=== PATIENT | female | born 1950 | race Caucasian/White ===

== ENCOUNTER 2017-02-14 05:50 | Outpatient (CLI) | payer MEDICARE, OTHER ==
[~2017-02-14] VITALS: Ht 167.6 cm; Wt 87.8 kg
--- NOTE | ~2017-02-14 | CATH ---
Cardiac Diagnostic Report Demographics Patient Name QI Manzanares Gender Female Date of 1950 Age 66 year(s) Patient Number [id number] Date of Study 02/14/2017 Visit Number [id number] Room Number G6399 [place] ID [id number] Ht 167.64 cm Wt 87.8 kg Referring Jorge Drake Primary Physician Physician Abhijit MILLARD Performing Rubin Lima MD Secondary Physician Physician Diagnostic Rubin Lima MD Assisting Physician Physician Interventional Physician Price Checker Physician Findings and Conclusions Diagnostic Findings and Conclusion Non-obstructive CAD. Elevated LVEDP (17) consistent with diastolic dysfunction. Diagnostic Recommendations Medical therapy. Routine post Perclose care. Procedure Description The patient was brought to the diagnostic cardiac catheterization-EP laboratory in the fasting, non-sedated state. Informed consent was obtained in the written and verbal form after the risks and benefits were explained. The patient had no further questions and agreed to proceed. The planned puncture-incision site(s) were shaved and prepped with ChloraPrep and draped in the usual sterile manner. Pain control medications were delivered by a registered nurse under physician guidance. Surface ECG rhythm, blood pressure measurement, and pulse oximetry were monitored throughout the procedure. Arterial access. The access site was infiltrated with lidocaine. The vessel was entered with the Seldinger technique. A sheath was advanced into the vessel and used for catheter placement. Venous access. The access site was infiltrated with 2% lidocaine. The vessel was entered with the Seldinger technique. A sheath was advanced into the vessel and used for catheter placement. Selective left coronary angiography. A catheter was advanced into the left coronary vessel ostium under Fluoroscopic guidance. Contrast was injected by hand. Images were obtained in multiple projections. Selective right coronary angiography. A catheter was advanced into the right coronary vessel ostium under fluoroscopic guidance. Contrast was injected by hand. Images were obtained in multiple projections. Left heart catheterization. A catheter was advanced across the aortic valve to the left ventricle under fluoroscopic guidance. Resting hemodynamics were obtained. Right heart catheterization. A [place] catheter was successfully advanced to the right atrium, right ventricle, pulmonary artery, and pulmonary artery wedge position under fluoroscopic guidance. Resting hemodynamics were obtained. Measurements included pressures, arterial and venous oxygen saturation samples, and cardiac output. The [place] was removed without difficulty. Arterial and Venous hemostasis was achieved. The patient was transferred to a regular nursing floor via cart accompanied by a nurse. The patient left the laboratory in stable condition. Diagnostic Cath Status: Elective Procedure Procedure Type Diagnostic procedure:Angiography:, Right and Left Heart Cath, Coronary Angios Indications: Dyspnea with exertion. The procedure was explained in detail to the patient. Risks, complications and alternative treatments were reviewed. Written consent was obtained. Medications Reviewed with Patient prior to Procedure. Angiographic Findings Dominance: Mixed Cardiac Arteries and Lesion Findings LMCA: Normal (0% Stenosis).Large. LAD: Normal (0% Stenosis).Medium, proximal calcification, normal. Diag 1 small to medium, normal. LCx: Normal (0% Stenosis).Large. OM 1 large, normal. RCA: Normal (0% Stenosis).Medium. PL small. PDA small. Procedure Data Procedure Date Date: 02/14/2017Start: 08:04 AMEnd: 08:48 AM Entry Locations - Retrograde Percutaneous access was performed through the Right Femoral artery. A 6 Fr sheath was inserted. Hemostasis was successfully obtained using Perclose ProGlide (Zaman). Closure Comments: Deployed by Casie Maria.. - Retrograde Percutaneous access was performed through the Right Femoral vein. A 7 Fr sheath was inserted. Hemostasis was successfully obtained using Manual Compression. Closure Comments: Manual pressure held by Casie Maria.. Procedure Medications Order and Administration + + +-------+------+ !Time !Medication !Dosage !Route ! + + +-------+------+ !02/14/2017 08:01 AM !Fentanyl !25 mcg !I.V. ! + + +-------+------+ !02/14/2017 08:06 AM !Fentanyl !25 mcg !I.V. ! + + +-------+------+ Devices Used - A6 Fr. BS Angled Pigtail Diag. Catheterwas used for:LV Pressures. - A6 Fr. BS JL 4 Diag. Catheterwas used for:Left coronary angiography. - A6 Fr. BS JR 4 Diag. Catheterwas used for:Right coronary angiography. Contrast Material - Isovue 65897 ml Fluoroscopy Time: Diagnostic: 5:06 minutes. Total: 5:06 minutes. Fluoroscopy Dose: Diagnostic: 541 mGy. Total: 541 mGy. Estimated Blood Loss: 3 ml. Medical History Allergies - Penicillin. Risk Factors The patient risk factors include:obesity, family history of premature CAD, last creatinine: 0.8 mg/dl, creatinine clearance: 94.58 ml/min and former tobacco use. Admission Data Admission Date: 02/14/2017 Admission Time: 05:50 AM Admit Source: Other Insurance Payors: Medicare. Admission Medications + +------+-------+ + + + + !Medication!Dosage!Times !Last !Last !Administered !Comments ! ! ! !Per Day!Delivery !Delivery ! ! ! ! ! ! !Date !Time ! ! ! + +------+-------+ + + + + !Aspirin ! ! ! ! ! ! ! !(any) ! ! ! ! ! ! ! + +------+-------+ + + + + VA LV function assessed . Hemodynamics Condition: Rest O2 Consumption: Estimated: 182.98Heart Rate: 70 bpm Oxygen Saturation +--------+-----+----+ +---+ + !Location!pCO2 !pO2 !% Saturation !Hgb!O2 Content ! +--------+-----+----+ +---+ + !RA ! ! !70.8 ! ! ! +--------+-----+----+ +---+ + !SVC ! ! !70.9 ! ! ! +--------+-----+----+ +---+ + !IVC ! ! !79.8 ! ! ! +--------+-----+----+ +---+ + !AO ! ! !96.2 ! ! ! +--------+-----+----+ +---+ + !PCW ! ! !84.7 ! ! ! +--------+-----+----+ +---+ + Pressures (mmHg) +-----+ + !Site !Pressure ! +-----+ + !RA !11/7 (7) ! +-----+ + !RV !40/0 ,11 ! +-----+ + !RV !38/0 ,11 ! +-----+ + !PCW ! (9) ! +-----+ + !PA !/12 (18) ! +-----+ + !LV !172/0 ,16 ! +-----+ + !PCW !14 (17) ! +-----+ + !LV !174/2 ,18 ! +-----+ + !PCW ! (15) ! +-----+ + !AO !177/102 (121) ! +-----+ + Cardiac Output + + +------+ !Time !Cardiac Output (l/min) !Use ! + + +------+ !02/14/2017 08:24 AM !4.59 !False ! + + +------+ !02/14/2017 08:25 AM !4.42 !True ! + + +------+ !02/14/2017 08:25 AM !4.26 !True ! + + +------+ !02/14/2017 08:26 AM !4.13 !True ! + + +------+ !02/14/2017 08:26 AM !3.91 !False ! + + +------+ Cardiac Output +-------+ + + + !Method !CO (l/min) !CI (l/min/m2) !SV (ml) ! +-------+ + + + ![place] !4.14 !2.1 !59.2 ! +-------+ + + + !Thermal!4.27 !2.2 !64.05 ! +-------+ + + + Shunts Oxygen Values O2 Capacity 174.08 O2 Consumption 182.98 Flows (l/min) Qs 4.56 Qe 4.56 Vascular Resistance (dynes x sec x cm-5) + +-----+-----+----+----+---------+-------+ !CO method !TSVR !SVR !TPVR!PVR !TPVR/TSVR!PVR/SVR! + +-----+-----+----+----+---------+-------+ ![place] !29.11!27.54!4.23!0.61!0.15 !0.02 ! + +-----+-----+----+----+---------+-------+ !Thermal !28.23!26.71!4.1 !0.59!0.15 !0.02 ! + +-----+-----+----+----+---------+-------+ !Qp or Qs !26.43!25.01! ! ! ! ! + +-----+-----+----+----+---------+-------+ Discharge Data Discharge Date: 02/14/2017 Hospital Status: Outpatient Signatures dtt: Clarence Conklin (cardio) dtd: 02/14/17 0804 Physician Self Edit
[~2017-02-14 05:50] MED LIST: ASPIRIN EC81 MG PO; CPAP INH; MOBIC15 MG PO; OCUVITE SOFTGE1 EACH PO; PAIN RELIEVER500 MG PO
[2017-02-14] MEDS ORDERED: LOPRESSOR25 MG PO (09:08)
== END 2017-02-14 12:13 | disposition disaster alternative care site (69) ==
LOC: GPCU 05:50 → GCAT 05:50
PROC: B2111ZZ Fluoroscopy of Multiple Coronary Arteries using Low Osmolar Contrast (ICD-10-PCS; principal; 2017-02-14)
PROC: 4A023N8 Measurement of Cardiac Sampling and Pressure, Bilateral, Percutaneous Approach (ICD-10-PCS; principal; 2017-02-14)
DX: R06.09 Other forms of dyspnea (principal); E78.5 Hyperlipidemia, unspecified; G47.33 Obstructive sleep apnea (adult) (pediatric); M19.90 Unspecified osteoarthritis, unspecified site; E66.9 Obesity, unspecified; H35.30 Unspecified macular degeneration; R35.1 Nocturia; M54.9 Dorsalgia, unspecified; G89.29 Other chronic pain; Z79.82 Long term (current) use of aspirin; Z79.1 Long term (current) use of non-steroidal anti-inflammatories (NSAID); Z87.891 Personal history of nicotine dependence; Z86.79 Personal history of other diseases of the circulatory system; Z87.09 Personal history of other diseases of the respiratory system; Z82.49 Family history of ischemic heart disease and other diseases of the circulatory system
CPT/HCPCS: C1760; J1644; J2250; J3010; J7030; J7060